=== PATIENT | female | born 1970 | race Caucasian/White ===

== ENCOUNTER 2017-02-02 13:58 | Emergency (ER) | payer OTHER ==
[~2017-02-02] VITALS: Ht 165.1 cm; Wt 78.6 kg
[~2017-02-02 13:58] MED LIST: IBUP-1222 PO; OXYC-302 PO
[2017-02-02 14:30] VITALS: BP 114/65
[2017-02-02] MEDS ORDERED: BUSP5TAB2 PO (14:31)
[2017-02-02 14:56] LABS: HEMOGLOBIN 12.8 g/dL (11.7-16.4)
[2017-02-02 15:08] LABS: ASPARTATE AMINO TRANSFERASE 24 U/L (15-37); BLOOD UREA NITROGEN 13 mg/dL (7-18)
[2017-02-02 16:50] LABS: PATH.CAST-FLAG NOT PRESENT; SPERM-FLAG NOT PRESENT; SRC-FLAG NOT PRESENT; XTAL-FLAG NOT PRESENT; YLC-FLAG NOT PRESENT
== END 2017-02-02 18:06 | disposition home or self-care (01) ==
LOC: ED 18:00
DX: N93.8 Other specified abnormal uterine and vaginal bleeding (principal); R31.29 Other microscopic hematuria
CPT/HCPCS: 36415; 76830; 80053; 81001; 84702; 85025; 85610; 87086